=== PATIENT | female | born 1950 | race Caucasian/White ===

== ENCOUNTER 2018-05-12 22:16 | Inpatient (IN) ==
[2018-05-13] MEDS ORDERED: Ipratropium/Albuterol Neb 3 ML IH ONE (03:29)
[2018-05-13] MEDS ORDERED: Ondansetron 4 MG/2 ML VIAL ONE ×2 (03:38→05:26)
[2018-05-13] MEDS ORDERED: Levalbuterol Neb 1.25 MG/3 ML ONE (03:42)
[2018-05-13] MEDS ORDERED: Levalbuterol 1 PUFF INHALER IH SCH (04:00)
[2018-05-13] MEDS ORDERED: 0.9 % Sodium Chloride 1,000 ML ONE (04:21)
[2018-05-13] MEDS ORDERED: 0.9 % Sodium Chloride 1,000 ML IVC ONE (04:28)
[2018-05-13] MEDS ORDERED: cefTRIAXone 2,000 MG in Water for inj. (sterile) 20 ML 20 ML IVP SCH (04:31)
[2018-05-13] MEDS ORDERED: OXYCODONE Oral CONC 10 MG/0.5 ML ORAL.SYG SL PRN ×4 (04:44→08:05)
[2018-05-13] MEDS ORDERED: Naloxone 0.4 MG/ML INJ IVP PRN ×3 (04:44→08:27)
--- NOTE | 2018-05-13 04:54 | Internal Med History&Physical ---
Addendum entered and electronically signed by Hesham Goddard 05/13/18 06:09: Patient was noted to have ST depressions on ECG. initial troponin was negative Original Note: <Hesham Goddard - Last Filed: 05/13/18 05:58> Date of Encounter: 05/13/18 Time of Encounter: 04:54 Internal Medicine - H&P: HPI Chief complaint: Kidney stone Admitted From: Hospital to Hospital Transfer History of present illness: Ms. Blood is a 67 year old female with a past medical history of hypertension, asthma, diabetes, thyroid disease transferred from [facility] due to kidney stone. Per patient into per chart review patient is having some nausea and vomiting on Sunday was noted to have a kidney stone on the left on imaging. Patient says she did not improve she went to [place] late Sunday night with nausea, vomiting, abdominal pain and flank pain. She was unable to keep any foods or liquids down. Patient was noted to have an obstructing stone on the left. Patient transferred to [place] Dr. akhtar, urology was notified. Patient was on fluoroscopy noted speak with her she was shaking significantly in stating she was very cold. She began to get short of breath and was wheezing. Serious so short of breath she was not able to speak to me. She is also dry heaving intermittently. Her pulse was 168 respirations were high. Patient began to get confused. She did not know birthday, or month or year. She was oriented to herself only for a brief amount of time. Patient was not on oxygen pulse ox initially measured 87% on room air. Oxygen was placed, levalbuterol as ordered. Patient was also any chest pain. ECG troponins were ordered Stat chest x-ray ordered. Patient was not hypotensive but she was noted be septic. Liters of fluid was given 2 g Rocephin and Zosyn started. Patient began to improve in the next [address] Akhtar was called and was coming in for urgent surgery. Past Med Surg Social Fam HX - Past Medical History Medical history: asthma, diabetes, hypertension, kidney stones, thyroid disease, other Additional medical history: anemia Psychiatric history: no psych history - Past Surgical History Surgical History: - Social History Smoking Status: Never smoker Alcohol use: rarely Drug use: none - Family History Sister Hx Family Endocrine Disorder: Yes (diabetes) Mother Hx Family Cardiac Disorders: Yes Father Hx Family Cardiac Disorders: Yes Internal Medicine - H&P: Meds Celecoxib [Celebrex] 200 mg PO DAILY 05/13/18 [History] Levothyroxine [Synthroid] 88 mcg PO DAILY 05/13/18 [History] Lisinopril [Zestril] 10 mg PO DAILY 05/13/18 [History] Rosuvastatin Calcium [Crestor] 10 mg PO HS 05/13/18 [History] metFORMIN [Glucophage] 500 mg PO BIDWM 05/13/18 [History] Allergy/AdvReac Type Severity Reaction Status Date / Time tea Allergy Wheezing Uncoded 05/13/18 02:56 ROS unobtainable: due to mental status All Systems PM: A 10-system review of systems was performed and is negative for pertinent findings except as documented above in the HPI. - Constitutional Vitals: Temp Pulse Resp BP Pulse Ox 98.6 F 123 20 124/72 91 05/13/18 04:10 05/13/18 04:10 05/13/18 04:10 05/13/18 04:10 05/13/18 04:10 General appearance: Present: A&O X 1, severe distress. Absent: answers questions appropriately Exam: Patient was shaking, dry heaving, and wheezing present during. She is unable to hold conversation with me during the beginning of my exam. After appropriate treatments she was more responsive became and no 2. She was still unable to take just correct month - Head Head exam: Present: atraumatic, normocephalic - Eye Eye exam: Present: PERRL, conjuntiva pink, sclera anicteric Pupils: Present: PERRL - Respiratory Respiratory exam: Present: CTAB, respiratory distress, wheezes. Absent: chest wall tenderness, rhonchi, stridor - Cardiovascular Cardiovascular exam: Present: +S1, +S2, tachycardia. Absent: diastolic murmur, gallop, rubs, systolic murmur - GI/Abdominal GI/Abdominal exam: Present: normal bowel sounds, soft, tenderness, no peritoneal signs. Absent: distended, firm, guarding, rigid - Extremities Exam Extremities exam: Present: warm, radial pulses palpable and symmetrical. Absent: calf tenderness, cyanotic, pedal edema - Neurological Exam Neurological exam: Present: alert, CN II-XII intact, reflexes normal, no focal deficits, strengths equal and symetr throughout. Absent: pronater drift, facial droop, speech deficit - Skin Skin exam: Present: dry, intact Internal Med - H&P Results - Labs Labs: Cardiac Enzymes 05/13/18 Range/Units 03:54 Troponin I < 0.03 (< 0.04) ng/mL - Impressions ITS Impressions Chest X-Ray 05/13/18 03:53 IMPRESSION: Mild right basilar opacities, which could represent atelectasis or a small infiltrate. D/ / Inderjit Buck MD / Inderjit Buck MD Interpreting Provider: Inderjit Buck MD - Assessment and Plan (1) Urolithiasis Current Visit: Yes Status: Acute Assessment and plan: Stone noted on outside facility imaging Left sided obstructive sound with hydro-nephrosis Urinalysis positive for UTI Patient met septic criteria initial temp was 102.5, pulse is 119 Initial lactic acid at [place] was 3.68 after 2 L decreased to 2.5. Repeat at [place] lactic acid 6.8 Patient currently on third liter bolus cefepime was given at [place] at around 2030 Rocephin 2 g and Zosyn started Dr. Akhtar , urology wass made aware and came in for urgent surgery Plan: Trend lactic acids Continue antibiotics IV hydration Blood cultures were drawn at [place], follow Cardiac monitoring Zofran when necessary Nothing by mouth Sublingual oxycodone for pain levalbuterol for SOB/wheezing ICU placement after surgery Qualifiers: Urinary calculus location: ureter Qualified Code(s): N20.1 - Calculus of ureter (2) Sepsis Current Visit: Yes Status: Acute Assessment and plan: Likely urosepsis Concern for possible pneumonia, aspiration pneumonia possible with patient's recent vomiting Plan as #1 above Qualifiers: Sepsis type: sepsis due to unspecified organism Qualified Code(s): A41.9 - Sepsis, unspecified organism (3) Urinary tract infection Current Visit: Yes Status: Acute Qualifiers: Urinary tract infection type: acute cystitis Hematuria presence: without hematuria Qualified Code(s): N30.00 - Acute cystitis without hematuria (4) Pneumonia Current Visit: Yes Status: Acute Assessment and plan: Concern for possible aspiration pneumonia with recent vomiting Plan as #1 above Qualifiers: Pneumonia type: due to unspecified organism Laterality: right Lung location: lower lobe of lung Qualified Code(s): J18.1 - Lobar pneumonia, unspecified organism (5) Nausea & vomiting Current Visit: Yes Status: Acute Assessment and plan: Zofran when necessary Qualifiers: Vomiting type: unspecified Vomiting Intractability: non-intractable Qualified Code(s): R11.2 - Nausea with vomiting, unspecified (6) Confusion Current Visit: Yes Status: Acute Assessment and plan: Likely do to sepsis Resolving at this time but if patient declines or develops any new symptoms consider CT of head and brain (7) DVT prophylaxis Current Visit: Yes Status: Acute Assessment and plan: EPCDs - Time Spent With Patient Total time spent is greater than 50% in coordination of care (as documented) at patient's floor/unit and/or counseling patient: <Napoleon Baez - Last Filed: 05/13/18 20:08> Date of Encounter: 05/13/18 Internal Medicine - H&P: HPI History of present illness: Ms. Blood is a 67 year old female All Systems PM: A 10-system review of systems was performed and is negative for pertinent findings except as documented above in the HPI. - Constitutional Vitals: Temp Pulse Resp BP Pulse Ox 99.4 F 78 20 120/74 97 05/13/18 12:28 05/13/18 19:33 05/13/18 19:00 05/13/18 19:00 05/13/18 19:00 Internal Med - H&P Results - Labs CBC & Chem 7: 05/13/18 09:28 05/13/18 09:28 Labs: Short CBC 05/13/18 Range/Units 09:28 WBC 15.6 H (4.3-11.1) K/mcL Hgb 12.0 (11.5-15.4) g/dL Hct 36.0 (35.3-44.9) % Plt Count 130 L (140-400) K/mcL Neutrophils # 14.5 H (1.6-8.9) K/mcL BMP 05/13/18 09:28 Sodium 137 Potassium 4.4 Chloride 108 H Carbon Dioxide 18 L BUN 27 H Creatinine 1.62 H Glucose 113 H Calcium 9.5 Cardiac Enzymes 05/13/18 Range/Units 03:54 Troponin I < 0.03 (< 0.04) ng/mL Liver Function 05/13/18 Range/Units 09:28 Total Bilirubin 1.0 (0.3-1.0) mg/dL Direct Bilirubin 0.7 H (0.0-0.2) mg/dL AST 25 (13-39) Units/L ALT 18 (7-52) Units/L Alkaline Phosphatase 63 (34-104) Units/L Albumin 3.3 L (3.5-5.7) g/dL - Impressions ITS Impressions Fluoroscopy 05/13/18 00:00 IMPRESSION: 1. Fluoroscopy provided intraprocedurally for left ureteral stent placement. D/ : / 05/13/2018 07:43:32 Randall Gallegos MD / rosana Interpreting Provider: Randall Gallegos MD X-Ray 05/13/18 00:00 IMPRESSION: 1. Fluoroscopy provided intraprocedurally for left ureteral stent placement. D/ : / 05/13/2018 07:43:32 Randall Gallegos MD / rosana Interpreting Provider: Randall Gallegos MD Chest X-Ray 05/13/18 03:53 IMPRESSION: Mild right basilar opacities, which could represent atelectasis or a small infiltrate. D/ / Inderjit Buck MD / Inderjit Buck MD Interpreting Provider: Inderjit Buck MD - Time Spent With Patient Total time spent is greater than 50% in coordination of care (as documented) at patient's floor/unit and/or counseling patient: - Attending Attestation I was present with resident during the history and exam. I discussed the case with the resident and agree with the findings and plan as documented in the residents note. I performed my own physical examination. Patient seen and examined in the morning of 05/13/18. Patient came to us from [facility] for kidney stone. Patient was stable while at [facility], and remained stable during nurse intake. She had an acute change that included confusion, tachycardia and hypertension. I was called by the resident and saw her right away. I performed a neuro exam as I was concerned for possible stroke, but patient had no deficits. Confusion could all be related to her sepsis secondary to kidney stone/uti and possible pneumonia. Her confusion also started to improve as well. We got stat labs and a chest x-ray that showed possible lower lobe infiltrate. We broadened her antibiotics to include zosyn, and will continue ceftriaxone and zosyn for the time being. Dr. Mahajan also evaluated the patient and agreed that symptoms were likely related to sepsis. Dr. Akhtar was then called as these new findings increased the urgency of her pending procedure later today. He agreed to come in and see the patient. She was then taken to the OR earlier this morning and transferred to ICU for closer monitoring.
[2018-05-13] MEDS ORDERED: 0.9 % Sodium Chloride 1,000 ML IVC SCH ×2 (05:00→08:05)
--- NOTE | 2018-05-13 05:16 | Anesthesia Evaluation PreOp ---
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 Other Medical History: Diabetes Type II, Other Anesthesia History: No Prior Anesthetic Complications, Past Anesthesia Alcohol Use: rarely Drug use: none Medications and Allergies Celecoxib [Celebrex] 200 mg PO DAILY 05/13/18 [History] Levothyroxine [Synthroid] 88 mcg PO DAILY 05/13/18 [History] Lisinopril [Zestril] 10 mg PO DAILY 05/13/18 [History] Rosuvastatin Calcium [Crestor] 10 mg PO HS 05/13/18 [History] metFORMIN [Glucophage] 500 mg PO BIDWM 05/13/18 [History] Allergy/AdvReac Type Severity Reaction Status Date / Time tea Allergy Wheezing Uncoded 05/13/18 02:56 - Meds/Allergy Pre-op Review Medications Reviewed: Yes Allergies Reviewed: Yes Anesthesia Exam O2 Sat Height 1.52 m Weight 77.5 kg O2 Sat by Pulse Oximetry 91 O2 Sat by Pulse Oximetry 96 Vital Signs/O2 Sat/Glucose, Most Recent Temp Pulse Resp BP Pulse Ox 98.6 F 123 20 124/72 91 05/13/18 04:10 05/13/18 04:10 05/13/18 04:10 05/13/18 04:10 05/13/18 04:10 NPO (# of Hours): 8 - HEENT Mallampati: II Teeth: Normal Oral Opening: Greater than 3 - Cardiac Rhythm: Regular (TACHYCARDIC) - Pulmonary Breath Sounds: bilateral Clear Respiratory Effort: Symmetrical - Additional Findings LABS AND RADIOLOGY REPORTS FROM [facility] REVIEWED. NON OBSTRUCTING PROXIMAL URETERIC STONE, UNCHANGED FROM 2 DAYS AGO. LACTIC ACID ELEVATED, BUT ALL OTHER LABS WITHIN NORMAL, INCLUDING WBC. Anesthesia Assess/Plan ASA Score: 3, E Anesthetic Plan: General Monitoring Plan: Standard Monitors Recovery Plan: PACU
[2018-05-13] MEDS ORDERED: *HR* FentaNYL (PF) 100 MCG/2 ML VIAL ONE (05:25)
[2018-05-13] MEDS ORDERED: *HR* Propofol 200 MG/20 ML VIAL IVP ONE (05:25)
[2018-05-13] MEDS ORDERED: Lidocaine -MPF 4% 5 ML AMPUL ONE (05:26)
[2018-05-13] MEDS ORDERED: Lidocaine -MPF 2% 2 ML VIAL ONE (05:26)
[2018-05-13] MEDS ORDERED: Dexamethasone 4 MG/ML VIAL ONE (05:26)
[2018-05-13] MEDS ORDERED: *HR* Rocuronium Bromide 50 MG/5 ML VIAL ONE (05:26)
[2018-05-13] MEDS ORDERED: *HR* Succinylcholine 200 MG/10 ML VIAL IVP ONE (05:26)
[2018-05-13] MEDS ORDERED: *HR* PHENYLEPHRINE 1,000 MCG/10 ML SYRINGE IVP ONE (05:27)
[2018-05-13] MEDS ORDERED: Isovue-300 50 ML VIAL ONE (05:34)
[2018-05-13] MEDS ORDERED: Hydrocortisone Sodium Succ 100 MG/2 ML VIAL ONE (05:36)
[2018-05-13] MEDS ORDERED: Acetaminophen IV 1,000 MG/100 ML INFUS..BTL ONE (05:37)
--- NOTE | 2018-05-13 05:46 | Urology - Consult Note ---
Date of Encounter: 05/13/18 Time of Encounter: 05:44 - Assessment and Plan (1) Urolithiasis Current Visit: Yes Status: Acute Assessment and plan: Assessment: 67-year-old woman with an obstructing left ureteral stone and pyelonephritis. Plan: We have discussed options. I recommended proceeding with a cystoscopy and left ureteral stent placement. She was informed of the risks of the procedure including but not limited to bleeding, infection, injury to other structures, need for further procedures, stent irritation, need for nephrostomy tube, need for open repair, risks unforeseen, and the risk of anesthesia. She is willing to proceed. She understands that stone treatment will be deferred to a later date once her infection has cleared. She has been given broad-spectrum antibiotics with ceftriaxone and is scheduled to get Zosyn this morning. She understands that she could require a ICU stay. Qualifiers: Urinary calculus location: ureter Qualified Code(s): N20.1 - Calculus of ureter (2) Sepsis Current Visit: Yes Status: Acute Qualifiers: Sepsis type: sepsis due to unspecified organism Qualified Code(s): A41.9 - Sepsis, unspecified organism (3) Urinary tract infection Current Visit: Yes Status: Acute Qualifiers: Urinary tract infection type: acute cystitis Hematuria presence: without hematuria Qualified Code(s): N30.00 - Acute cystitis without hematuria Urology CN:HPI Consult date: 05/13/18 Reason for consult Urology: Other (left ureteral stone, hydronephrosis) Requesting physician: Napoleon Baez History of present illness: 67-year-old woman presents with concern for left flank pain. She came to an outside hospital about 2-3 days ago with left flank pain radiating to her left groin. The pain was sharp and severe. The pain came on acutely. At [facility] she had a CT scan which showed a stone within her proximal left ureter. She was discharged home with pain medication. Yesterday afternoon, she return to the emergency department. She reported worsening nausea and she felt febrile. She was noted to have a temperature and was transferred to [facility]. At the hospital she has been given IV fluids for resuscitation. She does have an elevated lactate level. Past Med Surg Social Fam HX - Past Medical History Medical history: asthma, diabetes, hypertension, kidney stones, thyroid disease, other Additional medical history: anemia Psychiatric history: no psych history - Past Surgical History Surgical History: - Social History Smoking Status: Never smoker Alcohol use: rarely Drug use: none - Family History Sister Hx Family Endocrine Disorder: Yes (diabetes) Mother Hx Family Cardiac Disorders: Yes Father Hx Family Cardiac Disorders: Yes Medications and Allergies Celecoxib [Celebrex] 200 mg PO DAILY 05/13/18 [History] Levothyroxine [Synthroid] 88 mcg PO DAILY 05/13/18 [History] Lisinopril [Zestril] 10 mg PO DAILY 05/13/18 [History] Rosuvastatin Calcium [Crestor] 10 mg PO HS 05/13/18 [History] metFORMIN [Glucophage] 500 mg PO BIDWM 05/13/18 [History] Allergy/AdvReac Type Severity Reaction Status Date / Time tea Allergy Wheezing Uncoded 05/13/18 02:56 Review of Systems - Constitutional chills, fever(s) - EENT Nose, mouth and throat: no dizziness - Cardiovascular no chest pain - Respiratory no dyspnea - Gastrointestinal nausea - Genitourinary Genitourinary: flank pain, no hematuria - Musculoskeletal no back pain - Integumentary no erythema, no rash - Neurological no weakness - Psychiatric no suicidal ideation - Hematologic/Lymphatic no easy bleeding - Allergic/Immunologic no wheezing Exam Initial Vital Signs Temp Pulse Resp BP Pulse Ox 98.0 F 91 15 101/65 96 05/13/18 02:38 05/13/18 02:38 05/13/18 02:38 05/13/18 02:38 05/13/18 02:38 - General physical appearance Present: well developed, well nourished, no distress - Eyes Absent: icteric - ENT Present: normal nares - Neck Present: trachea midline - Respiratory Present: normal respiratory effort - Cardiovascular Cardiovascular exam IM: RRR - Abdomen Abdomen: Present: soft, tender (Left flank) - Integumentary Present: no rash - Neurologic Present: normal coordination - Musculoskeletal Present: other (Grossly normal) Urology Results - Labs Abnormal lab results Lactic Acid 6.8 mmol/L (0.5-2.2) H* 05/13/18 04:46 All other labs normal. - Imaging CT scan - abdomen: report reviewed, image reviewed CT scan - pelvis: report reviewed, image reviewed Consult Discharge Plan - Plan Referrals: Napoleon Baez MD [Primary Care Provider] -
[2018-05-13] MEDS ORDERED: Ondansetron 4 MG/2 ML VIAL IVP ONE (05:49)
[2018-05-13] MEDS ORDERED: *HR* HYDROmorphone (PF) 1 MG/ML SYRINGE IVP PRN ×2 (05:49→08:05)
[2018-05-13] MEDS ORDERED: *HR* Promethazine 25 MG/ML VIAL IVP PRN ×2 (05:49→08:05)
[2018-05-13] MEDS ORDERED: *HR* Meperidine 25 MG/ML SYRINGE IVP PRN ×2 (05:49→08:05)
[2018-05-13] MEDS ORDERED: Ipratropium/Albuterol Neb 3 ML IH PRN ×2 (05:49→08:05)
[2018-05-13] MEDS ORDERED: Ondansetron 4 MG/2 ML VIAL IVP SCH ×2 (06:00→12:00)
[2018-05-13] MEDS ORDERED: Piperacillin/Tazobactam 3.375 GM in 0.9 % Sodium Chloride Mini Bag 100 ML IVPB SCH ×2 (06:00→08:00)
--- NOTE | 2018-05-13 06:38 | Operative Note ---
Date of procedure: 05/13/18 Pre-op diagnosis: Left ureteral stone, UTI with sepsis Post-op diagnosis: same Procedure: Cystoscopy and left ureteral stent placement Implants: 6-[place] Citizen by 24 cm double-J stent Complications: None Anesthesia: DIANAA Surgeon: Rony Akhtar Was there an materials assistant present: No Estimated blood loss (cc): 0 Specimen: urine from left kidney for culture Condition: stable Disposition: PACU Procedure in Detail: Indications: Tarik is a 67-year-old woman who has a history of nephrolithiasis. She had a CT which showed a left proximal ureteral stone. She has been febrile and has not elevated lactate. She elected to undergo a cystoscopy and left ureteral stent placement. She was aware of the risks of the procedure including but not limited to bleeding, infection, injury to other structures, need for further procedures, stent irritation, need for nephrostomy tube, need for open repair, risks otherwise unforeseen, and the risk of anesthesia. She is willing to proceed. Procedure in Detail: After informed consent was obtained the patient was brought back to the operating room and placed in supine position. A time out was performed. General anesthesia was administered and an endotracheal tube was placed. She was then placed in the lithotomy position. She was prepped and draped in the usual sterile fashion. Cystoscopy was performed. The anterior urethra was normal. There was no evidence of bladder tumors. The ureteral orifices were in the normal orthotopic position. There was no duplication of the ureteral orifices. The Zip wire was placed in the left ureteral orifice. The wire was brought into the kidney under fluoroscopic guidance. The open-ended catheter was placed over the wire into the kidney. The wire was removed and urine was obtained from the kidney for culture. The wire was then brought up into the kidney under fluoroscopic guidance. The open ended catheter was removed. A 6 [place] Citizen by 24cm JJ stent was then placed. The dangle strings were removed. A Boyd catheter was placed. The patient was then awakened from general anesthesia and brought to recovery room in good condition. All sponge, needle, and instrument counts were correct.
[2018-05-13] MEDS ORDERED: Ringers Solution, Lactated 1,000 ML ONE (07:24)
[2018-05-13] MEDS ORDERED: Ringers Solution, Lactated 1,000 ML IVC ONE ×2 (07:30→08:05)
[2018-05-13] MEDS ORDERED: Dextrose 4 GM Chewable Tablets PO PRN ×2 (08:05)
[2018-05-13] MEDS ORDERED: *HR* Dextrose 50 % in Water (Syg) 50 ML SYRINGE IVP PRN (08:05)
[2018-05-13] MEDS ORDERED: Dextrose Gel 15 GM/37.5 ML TUBE PO PRN ×2 (08:05)
[2018-05-13] MEDS ORDERED: D5% in Water 1,000 ML IVC PRN (08:05)
--- NOTE | 2018-05-13 08:29 | Anesthesia Evaluation Post Op ---
Date of Encounter: 05/13/18 Time of Encounter: 08:00 - Vital Signs Vital Signs: Vital Signs/O2 Sat, Most Current Temp Pulse Resp BP Pulse Ox 100.8 F H 91 16 87/55 95 05/13/18 08:17 05/13/18 08:18 05/13/18 07:52 05/13/18 07:52 05/13/18 07:52 - Lungs Lungs: Clear Ascult./Percussion - Airway Airway: Non-obstructed - Cardiovascular Regular Rate - Mental Status Mental Status: Alert & Oriented, Answers Appropriately - Pain Pain Scale: 0 Pain Scale used: Numeric (1 - 10) - Nausea Vomiting Nausea Vomiting: Not Present - Hydration Hydration: NPO, Boyd catheter - Discharge PostOp Status: Transfer Patient to floor
[2018-05-13] MEDS: Insulin LISPRO 300 UNITS/3 ML VIAL SQ SCH ×3 (08:34→16:05)
--- NOTE | 2018-05-13 08:36 | Pulmonology Consult Note ---
<Jack Palumbo M - Last Filed: 05/13/18 13:38> Date of Encounter: 05/13/18 Medications and Allergies Celecoxib [Celebrex] 200 mg PO DAILY 05/13/18 [History] Levothyroxine [Synthroid] 88 mcg PO DAILY 05/13/18 [History] Lisinopril [Zestril] 10 mg PO DAILY 05/13/18 [History] Rosuvastatin Calcium [Crestor] 10 mg PO HS 05/13/18 [History] metFORMIN [Glucophage] 500 mg PO BIDWM 05/13/18 [History] Allergy/AdvReac Type Severity Reaction Status Date / Time tea Allergy Wheezing Uncoded 05/13/18 02:56 All Systems: The remainder of the systems were reviewed and are negative Physical Examination Vital Signs: Vital Signs, Last 4 Hours Temp Pulse Resp BP Pulse Ox 05/13/18 10:00 94 18 89/58 96 05/13/18 09:23 15 96 05/13/18 09:00 91 18 99/55 93 05/13/18 08:28 100.1 F H 05/13/18 08:18 91 05/13/18 08:17 100.8 F H 05/13/18 08:00 98 05/13/18 07:52 99.9 F H 92 16 87/55 95 05/13/18 07:42 92 20 85/55 95 05/13/18 07:32 90 18 86/53 97 05/13/18 07:22 99.1 F 91 18 86/54 96 05/13/18 07:17 92 20 89/51 95 05/13/18 07:12 95 18 84/49 96 05/13/18 07:02 101 20 91/48 94 05/13/18 06:52 99.2 F 103 22 89/51 93 Results - Laboratory Findings CBC and BMP: 05/13/18 09:28 05/13/18 09:28 Abnormal lab findings: Abnormal lab results WBC 15.6 K/mcL (4.3-11.1) H 05/13/18 09:28 Plt Count 130 K/mcL (140-400) L 05/13/18 09:28 Neutrophils # 14.5 K/mcL (1.6-8.9) H 05/13/18 09:28 Lymphocytes # 0.5 K/mcL (0.6-4.6) L 05/13/18 09:28 Platelet Estimate Slight Decrease (Normal) L 05/13/18 09:28 Chloride 108 mEq/L (98-107) H 05/13/18 09:28 Carbon Dioxide 18 mEq/L (23-29) L 05/13/18 09:28 BUN 27 mg/dL (8-23) H 05/13/18 09:28 Creatinine 1.62 mg/dL (0.60-1.20) H 05/13/18 09:28 Est GFR ( Amer) 38 (> 60) L 05/13/18 09:28 Est GFR (Non-Af Amer) 32 (> 60) L 05/13/18 09:28 Glucose 113 mg/dL (70-105) H 05/13/18 09:28 POC Glucose 104 mg/dL (70-99) H 05/13/18 08:06 Lactic Acid 3.3 mmol/L (0.5-2.2) H 05/13/18 09:28 Magnesium 0.9 mg/dL (1.6-2.6) L 05/13/18 09:28 Direct Bilirubin 0.7 mg/dL (0.0-0.2) H 05/13/18 09:28 Serum Total Protein 5.6 g/dL (6.4-8.9) L 05/13/18 09:28 Albumin 3.3 g/dL (3.5-5.7) L 05/13/18 09:28 Globulin 2.3 g/dL (2.4-3.5) L 05/13/18 09:28 - Microbiology Findings Microbiology Findings: Microbiology, Last 48 Hours 05/13/18 09:28 Blood Culture - Preliminary Peripheral Venipuncture Culture is incubating and being continuously mon itored for growth. Final report to follow. 05/13/18 09:28 Blood Culture - Preliminary Peripheral Venipuncture Culture is incubating and being continuously monitored for growth. Final report to follow. - Clinical Findings Intake & Output: Intake & Output 05/12/18 05/13/18 05/13/18 23:59 07:59 15:59 Intake Total 1020 / 1020 2099 / 2099 Output Total 225 / 225 Balance 795 / 795 2099 Weight 77.5 kg Consult Discharge Plan - Plan Referrals: Napoleon Baez MD [Primary Care Provider] - - Attending Attestation I examined this patient and my medical decision-making was reviewed with the Resident Physician. I agree with the documented findings, disposition and treatment plan as described except to the extent set forth below. Patient seen and examined. I was called by urologist after she had her surgery because of her hypotension and lactic acidosis Labs, radiology, chart personally reviewed. 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 Patient stated she is not using oxygen at home and I suspect this is related to underlying sepsis Cardiovascular: Borderline hypotensive and I will give her another bolus of flui d and reviewed her chest x-ray and evidence of pulmonary congestion which will need to be careful for more fluid resuscitation. GI: Nutrition per dietary and GI prophylaxis per routine Heme: DVT prophylaxis per routine ID: Continue antibiotics and plan to de-escalation. Pt with sepsis and continue broad spectrum Renal; urine out put and renal funtion reviewed. Patient with lactic acidosis and pt was given bolus fluid and may need vasopressors Endorcine: blood glucose is monitored Lines: all lines checked and no evidence of infections Skin: skin care to prevent pressure ulcers per nursing routine care I have discussed with the family at the bedside. I spent 35 min of Critical Care time with this patient. It involved decision making of high complexity to assess, manipulate, and support vital organ system failure and/or to prevent further life threatening deterioration of the patient's condition. The time involved in the performance of separately reportable procedures was not counted toward critical care time. <Hola Crum - Last Filed: 05/13/18 14:45> Date of Encounter: 05/13/18 Time of Encounter: 08:36 Assessment and Plan (1) Sepsis Current Visit: Yes Status: Acute This is a 67-year-old female with past medical history significant for hypertension, asthma, diabetes, thyroid disease who initially presented last evening with left-sided kidney stone. - Imaging initially showed a obstructing kidney stone on the left - Septic presentation - febrile, tachycardic, tachypnic, leukocytosis, hypotensive - Lactic Acid = 6.8 - UA suggestive of UTI - S/p IVF and Rocephin, Zosyn - CXR (2/25/19): Mild right basilar opacities, which could represent atelectasis or a small infiltrate. - S/p urgent cystoscopy with left ureteral stent placement PLAN: Patient presents with likely urosepsis. Febrile, tachycardic, tachypneic, hyp otensive with leukocytosis on presentation. Status post fluids and prophylactic antibiotics. Status post cystoscopy with left ureteral stent placement. Clinically improving in the ICU - Monitor vitals, monitor pressures; titrate to keep map greater than 65. - Continue IV fluids; however beware of fluid overload - Continue O2 supplementation; titrate to keep O2 sat greater than 88%; wean oxygen as tolerated - Continue broad-spectrum antibiotics - Follow up blood cultures, urine cultures - Repeat lactic acid - Monitor for fevers or worsening leukocytosis - Monitor urine output, and kidney function - Pain control as needed Qualifiers: Sepsis type: sepsis due to unspecified organism Qualified Code(s): A41.9 - Sepsis, unspecified organism (2) Urolithiasis Current Visit: Yes Status: Acute Imaging initially showed a obstructing kidney stone on the left. - S/p cystoscopy and left ureteral stent placement PLAN: - Urolology recommendations appreciated - Plan as above for sepsis Qualifiers: Urinary calculus location: ureter Qualified Code(s): N20.1 - Calculus of ureter (3) Urinary tract infection Current Visit: Yes Status: Acute UA at outside facility demonstrative of UTI - WBC = 15.6 - Septic presentation PLAN: - Cont IVF - Cont antibiotics - F/u urine culture --> adjust antibiotics as necessary Qualifiers: Urinary tract infection type: acute cystitis Hematuria presence: without hematuria Qualified Code(s): N30.00 - Acute cystitis without hematuria (4) DVT prophylaxis Current Visit: Yes Status: Acute Cont SCDs (5) Acute kidney injury Current Visit: Yes Status: Acute BUN/Cr = 27/1.62 PLAN: Likely secondary to sepsis. - Continue IV fluids - Monitor urine output and BUN/Cr History of Present Illness Consult date: 05/13/18 Requesting physician: Rony Akhtar Reason for consult: other (Hypotension, Lactic Acidosis) Chief complaint: Hypotension, Lactic Acidosis History of present illness: This is a 67-year-old female with past medical history significant for hypertension, asthma, diabetes, thyroid disease who initially presented last evening with left-sided kidney stone. Noted to have 2-3 days of left flank pain spreading to the left groin. Pain was sharp and severe. Associated with nausea, vomiting, abdominal pain. Unable to eat or drink. Imaging initially showed a obstructing kidney stone on the left. On presentation, patient noted to be febrile, tachycardic, tachypnea with leukocytosis. Urinalysis suggestive of UTI. Initial Lactic Acid = 3.68, which decreased after fluids to 2.5, but again raised to 6.8 on prsentation to ARM. Patient was given IV fluids and started on Rocephin and Zosyn. Dr. Akhtar from urology was paged, and planned to come in for urgent surgery. Given obstructing left ureteral stone and pyelonephritis, urology proceeded with cystoscopy and left ureteral stent placement. Patient was brought to ICU post- operatively. Lactic acid = 6.8. Noted to be hypertensive = 80s/50s. Given liter bolus of lactated Ringer's, and started on Zosyn. Pressures responded to fluids. Patient currently stable resting comfortably. Vitals hemodynamically stable. O2 sats appropriate on room air. Past Med Surg Social Fam HX - Past Medical History Attestation: Yes The following information was validated with the patient. Source: patient, old records reviewed Medical history: asthma, diabetes, hypertension, kidney stones, thyroid disease, other Additional medical history: anemia Psychiatric history: no psych history - Past Surgical History Surgical History: - Social History Smoking Status: Never smoker Alcohol use: rarely Drug use: none - Family History Sister Hx Family Endocrine Disorder: Yes (diabetes) Mother Hx Family Cardiac Disorders: Yes Father Hx Family Cardiac Disorders: Yes All Systems: The remainder of the systems were reviewed and are negative - Constitutional Constitutional: fatigue, no chills, no fever(s), no headache(s), no lethargy, no weakness - EENT Eyes: no loss of vision Ears: no decreased hearing Nose, mouth and throat: no dizziness, no dry mouth, no headache(s), no nasal discharge, no sore throat - Cardiovascular Cardiovascular: no chest pain, no dyspnea, no dyspnea on exertion, no edema, no irregular heart rhythm, no lightheadedness - Respiratory Respiratory: no cough, no dyspnea, no wheezing - Gastrointestinal Gastrointestinal: nausea, no abdominal pain, no diarrhea, no vomiting - Genitourinary Genitourinary: hematuria - Musculoskeletal Musculoskeletal: no weakness, no myalgias - Integumentary Integumentary: no rash - Neurological Neurological: no confusion, no dizziness, no headache(s) Physical Examination Vital Signs: Vital Signs, Last 4 Hours Temp Pulse Resp BP Pulse Ox 05/13/18 08:18 91 05/13/18 08:17 100.8 F H 05/13/18 08:00 98 05/13/18 07:52 99.9 F H 92 16 87/55 95 05/13/18 07:42 92 20 85/55 95 05/13/18 07:32 90 18 86/53 97 05/13/18 07:22 99.1 F 91 18 86/54 96 05/13/18 07:17 92 20 89/51 95 05/13/18 07:12 95 18 84/49 96 05/13/18 07:02 101 20 91/48 94 05/13/18 06:52 99.2 F 103 22 89/51 93 General appearance: no acute distress, alert Eyes: nonicteric ENT: oropharynx moist Neck: supple Effort: normal Auscultation: bilateral: clear (No wheezes, rales, rhonchi, crackles) Cardiovascular: regular rate and rhythm Gastrointestinal: normoactive bowel sounds, soft, non-tender, non-distended Integumentary: normal Extremities: no cyanosis, no edema normal mental status, non-focal exam, pupils equal and round, CN II-XII normal mood appropriate, affect normal Results - Laboratory Findings CBC and BMP: 05/13/18 09:28 05/13/18 09:28 Abnormal lab findings: Abnormal lab results POC Glucose 104 mg/dL (70-99) H 05/13/18 08:06 Lactic Acid 6.8 mmol/L (0.5-2.2) H* 05/13/18 04:46 - Clinical Findings Intake & Output: Intake & Output 05/12/18 05/13/18 05/13/18 23:59 07:59 15:59 Intake Total 1020 / 1020 0 / 0 Output Total 225 / 225 Balance 795 / 795 0 / 0 Weight 77.5 kg
[2018-05-13] MEDS: Levalbuterol Neb 0.63 MG/3 ML IH SCH ×3 (09:21→21:47)
[2018-05-13] MEDS: Ringers Solution, Lactated 1,000 ML IVC SCH ×3 (09:37→22:01)
[2018-05-13 09:48] LABS: Basophils % 0.1 %; Eosinophils % 0.1 %; Immature Granulocytes % 1.7 % (0-4); Lymphocytes # 0.5 K/mcL (0.6-4.6); Lymphocytes % 2.9 %; Mean Corpuscular HGB Conc 33.3 g/dL (31.6-35.5); Mean Corpuscular Hemoglobin 30.9 pg (28.0-33.3); Mean Corpuscular Volume 92.8 fL (83.0-100.0); Mean Platelet Volume 10.6 fL (9.4-12.4); Monocytes # 0.4 K/mcL (0.0-1.3); Monocytes % 2.6 %; Neutrophils # 14.5 K/mcL (1.6-8.9); Platelet Count 130 K/mcL (140-400); Red Blood Count 3.88 M/mcL (3.82-4.97); Red Cell Distribution Width 12.8 % (11.5-14.5); Segmented Neutrophils % 92.6 %
[2018-05-13] MEDS ORDERED: Levalbuterol Neb 0.63 MG/3 ML IH SCH (10:00)
[2018-05-13 10:02] LABS: Albumin 3.3 g/dL (3.5-5.7); Albumin/Globulin Ratio 1.4 (1.1-2.2); Bilirubin,Direct 0.7 mg/dL (0.0-0.2); Bilirubin,Indirect 0.3 mg/dL (0.0-1.2); Calcium 9.5 mg/dL (8.6-10.3); Globulin 2.3 g/dL (2.4-3.5); Magnesium 0.9 mg/dL (1.6-2.6); Phosphorous 3.2 mg/dL (2.7-4.5); Potassium 4.4 mEq/L (3.5-5.1); Total Protein 5.6 g/dL (6.4-8.9)
[2018-05-13 10:03] LABS: Platelet Estimate Slight Decrease (Normal)
--- NOTE | 2018-05-13 11:13 | Urology Progress Note ---
Date of Encounter: 05/13/18 Time of Encounter: 10:30 - Assessment and Plan (1) Urinary tract infection Current Visit: Yes Status: Acute Assessment and plan: Patient is a 67-year old female who presents with a left proximal ureteral stone and urinary tract infection. Patient is 4 hours status post cystoscopy and left ureteral stent placement. Blood and urine cultures pending. Reviewed vital signs. Patient is febrile to 100.1 and hypotensive, otherwise stable. Patient is receiving IV Zosyn. Qualifiers: Urinary tract infection type: acute cystitis Hematuria presence: without hematuria Qualified Code(s): N30.00 - Acute cystitis without hematuria (2) Urolithiasis Current Visit: Yes Status: Acute Assessment and plan: Patient is a 67-year old female who presents with left proximal ureteral stone. Patient is status post ureteral stent. Will require staged stone extraction procedure once infection is resolved. Qualifiers: Urinary calculus location: ureter Qualified Code(s): N20.1 - Calculus of ureter Progress Note Narrative: POD #0. Patient seen and examined sitting upright in bed in no apparent distress. Patient reports pain is well controlled at present. Boyd catheter is indwelling and draining transparent pink lemonade urine into bedside bag. Objective Initial Vital Signs Temp Pulse Resp BP Pulse Ox 98.0 F 91 15 101/65 96 05/13/18 02:38 05/13/18 02:38 05/13/18 02:38 05/13/18 02:38 05/13/18 02:38 - General physical appearance Present: no distress, no pain - Respiratory Present: normal expansion, normal respiratory effort - Abdomen Present: soft, non tender - Genitourinary Urine Appearance: Present: Hematuria - Integumentary Present: no rash, no abnormal pigmentation - Musculoskeletal Present: normal posture - Psychiatric Present: oriented to time, oriented to person, oriented to place, speech is normal, memory intact - Labs 05/13/18 09:28 05/13/18 09:28 Diabetes panel 05/13/18 Range/Units 09:28 Sodium 137 (136-145) mEq/L Potassium 4.4 (3.5-5.1) mEq/L Chloride 108 H (98-107) mEq/L Carbon Dioxide 18 L (23-29) mEq/L BUN 27 H (8-23) mg/dL Creatinine 1.62 H (0.60-1.20) mg/dL Glucose 113 H (70-105) mg/dL Calcium 9.5 (8.6-10.3) mg/dL AST 25 (13-39) Units/L ALT 18 (7-52) Units/L Alkaline Phosphatase 63 (34-104) Units/L Albumin 3.3 L (3.5-5.7) g/dL Calcium panel 05/13/18 Range/Units 09:28 Calcium 9.5 (8.6-10.3) mg/dL Phosphorus 3.2 (2.7-4.5) mg/dL Albumin 3.3 L (3.5-5.7) g/dL Pituitary panel 05/13/18 Range/Units 09:28 Sodium 137 (136-145) mEq/L Potassium 4.4 (3.5-5.1) mEq/L Chloride 108 H (98-107) mEq/L Carbon Dioxide 18 L (23-29) mEq/L BUN 27 H (8-23) mg/dL Creatinine 1.62 H (0.60-1.20) mg/dL Glucose 113 H (70-105) mg/dL Calcium 9.5 (8.6-10.3) mg/dL Adrenal panel 05/13/18 Range/Units 09:28 Sodium 137 (136-145) mEq/L Potassium 4.4 (3.5-5.1) mEq/L Chloride 108 H (98-107) mEq/L Carbon Dioxide 18 L (23-29) mEq/L BUN 27 H (8-23) mg/dL Creatinine 1.62 H (0.60-1.20) mg/dL Glucose 113 H (70-105) mg/dL Calcium 9.5 (8.6-10.3) mg/dL Total Bilirubin 1.0 (0.3-1.0) mg/dL AST 25 (13-39) Units/L ALT 18 (7-52) Units/L Alkaline Phosphatase 63 (34-104) Units/L Albumin 3.3 L (3.5-5.7) g/dL Consult Discharge Plan - Plan Referrals: Napoleon Baez MD [Primary Care Provider] -
[2018-05-13] MEDS ORDERED: Ondansetron 4 MG/2 ML VIAL IVP PRN (14:38)
[2018-05-13] MEDS: Piperacillin/Tazobactam 3.375 GM in 0.9 % Sodium Chloride Mini Bag 100 ML IVPB SCH ×2 (15:14→23:41)
[2018-05-14] MEDS ORDERED: OXYCODONE Oral CONC 10 MG/0.5 ML ORAL.SYG SL PRN ×2 (01:00)
[2018-05-14] MEDS ORDERED: Dextrose 4 GM Chewable Tablets PO PRN ×2 (01:00)
[2018-05-14] MEDS ORDERED: *HR* HYDROmorphone (PF) 1 MG/ML SYRINGE IVP PRN (01:00)
[2018-05-14] MEDS ORDERED: *HR* Promethazine 25 MG/ML VIAL IVP PRN (01:00)
[2018-05-14] MEDS ORDERED: Naloxone 0.4 MG/ML INJ IVP PRN (01:00)
[2018-05-14] MEDS ORDERED: D5% in Water 1,000 ML IVC PRN (01:00)
[2018-05-14] MEDS ORDERED: Ipratropium/Albuterol Neb 3 ML IH PRN (01:00)
[2018-05-14] MEDS ORDERED: Ondansetron 4 MG/2 ML VIAL IVP PRN (01:00)
[2018-05-14] MEDS ORDERED: Dextrose Gel 15 GM/37.5 ML TUBE PO PRN ×2 (01:00)
[2018-05-14] MEDS ORDERED: *HR* Dextrose 50 % in Water (Syg) 50 ML SYRINGE IVP PRN (01:00)
[2018-05-14 04:15] LABS: Basophils % 0.1 %; Hemoglobin 10.3 g/dL (11.5-15.4); Immature Granulocytes % 5.5 % (0-4); Lymphocytes # 1.3 K/mcL (0.6-4.6); Lymphocytes % 5.2 %; Mean Corpuscular HGB Conc 33.2 g/dL (31.6-35.5); Mean Corpuscular Hemoglobin 30.7 pg (28.0-33.3); Mean Corpuscular Volume 92.5 fL (83.0-100.0); Mean Platelet Volume 11.2 fL (9.4-12.4); Monocytes # 1.1 K/mcL (0.0-1.3); Monocytes % 4.5 %; Neutrophils # 21.2 K/mcL (1.6-8.9); Platelet Count 124 K/mcL (140-400); Red Blood Count 3.35 M/mcL (3.82-4.97); Red Cell Distribution Width 13.2 % (11.5-14.5); Segmented Neutrophils % 84.7 %
[2018-05-14] MEDS: Levalbuterol Neb 0.63 MG/3 ML IH SCH ×4 (04:28→22:35)
[2018-05-14 04:34] LABS: Albumin 3.2 g/dL (3.5-5.7); Albumin/Globulin Ratio 1.3 (1.1-2.2); Bilirubin,Total 0.6 mg/dL (0.3-1.0); Calcium 8.8 mg/dL (8.6-10.3); Globulin 2.4 g/dL (2.4-3.5); Magnesium 1.2 mg/dL (1.6-2.6); Phosphorous 3.8 mg/dL (2.7-4.5); Potassium 4.3 mEq/L (3.5-5.1); Total Protein 5.6 g/dL (6.4-8.9)
[2018-05-14 04:48] LABS: Platelet Estimate Slight Decrease (Normal); Toxic Granulation Present (Not Present)
[2018-05-14] MEDS: Ringers Solution, Lactated 1,000 ML IVC SCH ×4 (06:15→20:14)
--- NOTE | 2018-05-14 06:42 | Electrocardiograph Report ---
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
--- NOTE | 2018-05-14 06:47 | Pulmonology Progress Note ---
<LinwoodJack M - Last Filed: 05/14/18 10:04> Date of Encounter: 05/14/18 Objective PUL Vital signs: Last Vital Signs Temp 98.2 F 05/14/18 04:51 Pulse 80 05/14/18 07:15 Resp 18 05/14/18 07:00 BP 120/65 05/14/18 07:00 Pulse Ox 91 05/14/18 07:00 Results - Laboratory Findings CBC and BMP: 05/14/18 03:19 05/14/18 03:19 Abnormal lab findings: Abnormal lab results WBC 25.0 K/mcL (4.3-11.1) H D 05/14/18 03:19 RBC 3.35 M/mcL (3.82-4.97) L 05/14/18 03:19 Hgb 10.3 g/dL (11.5-15.4) L D 05/14/18 03:19 Hct 31.0 % (35.3-44.9) L 05/14/18 03:19 Plt Count 124 K/mcL (140-400) L 05/14/18 03:19 Immature Gran % 5.5 % (0-4) H 05/14/18 03:19 Neutrophils # 21.2 K/mcL (1.6-8.9) H 05/14/18 03:19 Toxic Granulation Present (Not Present) A 05/14/18 03:19 Platelet Estimate Slight Decrease (Normal) L 05/14/18 03:19 Chloride 112 mEq/L (98-107) H 05/14/18 03:19 Carbon Dioxide 19 mEq/L (23-29) L 05/14/18 03:19 BUN 29 mg/dL (8-23) H 05/14/18 03:19 Creatinine 1.48 mg/dL (0.60-1.20) H 05/14/18 03:19 Est GFR ( Amer) 42 (> 60) L 05/14/18 03:19 Est GFR (Non-Af Amer) 35 (> 60) L 05/14/18 03:19 Glucose 126 mg/dL (70-105) H 05/14/18 03:19 POC Glucose 128 mg/dL (70-99) H 05/13/18 16:03 Magnesium 1.2 mg/dL (1.6-2.6) L 05/14/18 03:19 Direct Bilirubin 0.7 mg/dL (0.0-0.2) H 05/13/18 09:28 Serum Total Protein 5.6 g/dL (6.4-8.9) L 05/14/18 03:19 Albumin 3.2 g/dL (3.5-5.7) L 05/14/18 03:19 - Microbiology Findings Microbiology Findings: Microbiology, Last 48 Hours 05/13/18 06:25 Urine Culture - Preliminary Urine,Kidney Culture is incubating. 05/13/18 09:28 Blood Culture - Preliminary Peripheral Venipuncture Culture is incubating and being continuously monitored for growth. Final report to follow. 05/13/18 09:28 Blood Culture - Preliminary Peripheral Venipuncture Culture is incubating and being continuously monitored for growth. Final report to follow. - Clinical Findings Intake & Output: Intake & Output 05/13/18 05/14/18 05/14/18 23:59 07:59 15:59 Intake Total 1600 / 1600 1560 / 1560 Output Total 1100 / 1100 1400 / 1400 200 / 200 Balance 500 / 500 160 / 160 -200 / -200 Weight 82.2 kg Consult Discharge Plan - Plan Referrals: Napoleon Baez MD [Primary Care Provider] - - Attending Attestation I examined this patient and my medical decision-making was reviewed with the Resident Physician. I agree with the documented findings, disposition and treatment plan as described except to the extent set forth below. Patient seen and examined. Labs, radiology, chart personally reviewed. 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 GI: Nutrition per dietary and GI prophylaxis per routine Heme: DVT prophylaxis per routine ID: Continue antibiotics and plan to de-escalation. Continue antibiotics. Renal; urine out put and renal funtion reviewed. Urology follow-up. Continue IV fluid for now and monitor electrolytes. There is improvement. Lactic acid Endorcine: blood glucose is monitored Lines: all lines checked and no evidence of infections Skin: skin care to prevent pressure ulcers per nursing routine care <Cirilo Rubin - Last Filed: 05/14/18 10:51> Date of Encounter: 05/14/18 Time of Encounter: 06:42 Assessment and Plan (1) Sepsis Current Visit: Yes Status: Acute 67-year-old female with past medical history significant for hypertension, asthma, diabetes, thyroid disease who initially presented 05/12/18 with left- sided kidney stone. Most likely urosepsis based on history of cystocopy + L uteral stent and positive urinalysis. - Imaging initially showed a obstructing kidney stone on the left - Septic presentation - febrile, tachycardic, tachypnic, leukocytosis, hypotensive - Lactic Acid = 1.4 today < 3.1 1PM yesterday - UA suggestive of UTI, pending urine cultures - pending blood cultures - S/p IVF and Rocephin, Zosyn - CXR (05/13/18): Mild right basilar opacities, which could represent atelectasis or a small infiltrate. - S/p urgent cystoscopy with left ureteral stent placement PLAN: Patient presents with likely urosepsis. Febrile, tachycardic, tachypneic, hypotensive with leukocytosis on presentation. Status post fluids and prophylactic antibiotics. Status post cystoscopy with left ureteral stent placement. Clinically improving in the ICU - Monitor vitals, monitor pressures; titrate to keep map greater than 65. - Continue IV fluids; however beware of fluid overload - Continue O2 supplementation; titrate to keep O2 sat greater than 88%; wean oxygen as tolerated - Continue broad-spectrum antibiotics - zosyn - Follow up blood cultures, urine cultures - Monitor for fevers or worsening leukocytosis - Monitor urine output, and kidney function - Pain control as needed Qualifiers: Sepsis type: sepsis due to unspecified organism Qualified Code(s): A41.9 - Sepsis, unspecified organism (2) Urinary tract infection Current Visit: Yes Status: Acute Urinalysis at outside facility indicated UTI. Urine culture pending. See Sepsis plan Qualifiers: Urinary tract infection type: acute cystitis Hematuria presence: without hematuria Qualified Code(s): N30.00 - Acute cystitis without hematuria (3) Acute kidney injury Current Visit: Yes Status: Acute Creatinine improving 1.48 < 1.68 (4) DVT prophylaxis Current Visit: Yes Status: Acute SCDs Subjective Principal diagnosis: Urosepsis, UTI, neprholithaisis s/p cystocpy and L uteral stent. Interval history: 57 YO F here for urosepsis, uti, neprholithiasis s/p cystocopy and L uteral stent. In NAD. Denies fever, chills, chest pain, SOB, abdominal pain. Patient states that Dr. Alejandro will come in and remove cath today. Objective PUL Vital signs: Last Vital Signs Temp 98.2 F 05/14/18 04:51 Pulse 78 05/14/18 04:40 Resp 20 05/14/18 04:40 BP 119/69 05/14/18 04:40 Pulse Ox 91 05/14/18 04:40 General appearance: no acute distress, alert Eyes: nonicteric ENT: oropharynx moist Neck: supple Auscultation: bilateral: clear, diminished breath sounds (due to pain with inspiration in pelvis) Cardiovascular: regular rate and rhythm Gastrointestinal: normoactive bowel sounds Extremities: no cyanosis, no edema, pink and warm normal mental status mood appropriate Results - Laboratory Findings CBC and BMP: 05/14/18 03:19 05/14/18 03:19 Abnormal lab findings: Abnormal lab results WBC 25.0 K/mcL (4.3-11.1) H D 05/14/18 03:19 RBC 3.35 M/mcL (3.82-4.97) L 05/14/18 03:19 Hgb 10.3 g/dL (11.5-15.4) L D 05/14/18 03:19 Hct 31.0 % (35.3-44.9) L 05/14/18 03:19 Plt Count 124 K/mcL (140-400) L 05/14/18 03:19 Immature Gran % 5.5 % (0-4) H 05/14/18 03:19 Neutrophils # 21.2 K/mcL (1.6-8.9) H 05/14/18 03:19 Toxic Granulation Present (Not Present) A 05/14/18 03:19 Platelet Estimate Slight Decrease (Normal) L 05/14/18 03:19 Chloride 112 mEq/L (98-107) H 05/14/18 03:19 Carbon Dioxide 19 mEq/L (23-29) L 05/14/18 03:19 BUN 29 mg/dL (8-23) H 05/14/18 03:19 Creatinine 1.48 mg/dL (0.60-1.20) H 05/14/18 03:19 Est GFR ( Amer) 42 (> 60) L 05/14/18 03:19 Est GFR (Non-Af Amer) 35 (> 60) L 05/14/18 03:19 Glucose 126 mg/dL (70-105) H 05/14/18 03:19 POC Glucose 128 mg/dL (70-99) H 05/13/18 16:03 Lactic Acid 3.1 mmol/L (0.5-2.2) H 05/13/18 13:02 Magnesium 1.2 mg/dL (1.6-2.6) L 05/14/18 03:19 Direct Bilirubin 0.7 mg/dL (0.0-0.2) H 05/13/18 09:28 Serum Total Protein 5.6 g/dL (6.4-8.9) L 05/14/18 03:19 Albumin 3.2 g/dL (3.5-5.7) L 05/14/18 03:19 - Microbiology Findings Microbiology Findings: Microbiology, Last 48 Hours 05/13/18 06:25 Urine Culture - Preliminary Urine,Kidney Culture is incubating. 05/13/18 09:28 Blood Culture - Preliminary Peripheral Venipuncture Culture is incubating and being continuously monitored for growth. Final report to follow. 05/13/18 09:28 Blood Culture - Preliminary Peripheral Venipuncture Culture is incubating and being continuously monitored for growth. Final report to follow. - Clinical Findings Intake & Output: Intake & Output 05/13/18 05/13/18 05/14/18 15:59 23:59 07:59 Intake Total 3600 / 3600 1600 / 1600 1100 / 1100 Output Total 1100 / 1100 950 / 950 Balance 3600 / 3600 500 / 500 150 / 150 Weight 82.2 kg
[2018-05-14] MEDS: Insulin LISPRO 300 UNITS/3 ML VIAL SQ SCH ×3 (07:25→17:08)
--- NOTE | 2018-05-14 09:32 | Urology Progress Note ---
Date of Encounter: 05/14/18 Time of Encounter: 09:10 - Assessment and Plan (1) Urinary tract infection Current Visit: Yes Status: Acute Assessment and plan: Patient is a 67-year-old female who presents with a left proximal ureteral stone and urinary tract infection. Vital signs are currently stable and afebrile. Patient is pending step down transfer from ICU to a regular telemetry bed. White blood cell count is elevated to 25.0. Creatinine is improved to 1.48. Blood and urine cultures are pending. Patient is receiving IV Zosyn. I will placed order to discontinue Boyd catheter. Qualifiers: Urinary tract infection type: acute cystitis Hematuria presence: without hematuria Qualified Code(s): N30.00 - Acute cystitis without hematuria (2) Urolithiasis Current Visit: Yes Status: Acute Assessment and plan: Patient is a 67-year-old female who is one day status post cystoscopy and left ureteral stent placement. Patient is recovering well. Patient is aware she will require a staged stone extraction procedure. Postoperative expectations with indwelling ureteral stent were discussed with patient and her . Qualifiers: Urinary calculus location: ureter Qualified Code(s): N20.1 - Calculus of ureter Progress Note Subjective: no new complaints, feels better Narrative: POD #1. Patient seen and examined sitting upright in chair in no apparent distress. Boyd catheter is indwelling and draining transparent pink lemonade urine into bedside bag. Patient admits to catheter discomfort and desires rem oval. Patient denies fever, chills, flank pain, chest pain, dyspnea. Objective Initial Vital Signs Temp Pulse Resp BP Pulse Ox 98.0 F 91 15 101/65 96 05/13/18 02:38 05/13/18 02:38 05/13/18 02:38 05/13/18 02:38 05/13/18 02:38 - General physical appearance Present: well developed, no distress, no pain - Respiratory Present: normal expansion, normal respiratory effort - Abdomen Present: soft, non tender - Genitourinary Urine Appearance: Present: Hematuria (Transparent pink lemonade) - Integumentary Present: no rash, no abnormal pigmentation - Musculoskeletal Present: normal posture - Psychiatric Present: oriented to time, oriented to person, oriented to place, speech is normal, memory intact - Labs 05/14/18 03:19 05/14/18 03:19 Diabetes panel 05/13/18 05/14/18 Range/Units 09:28 03:19 Sodium 137 136 (136-145) mEq/L Potassium 4.4 4.3 (3.5-5.1) mEq/L Chloride 108 H 112 H (98-107) mEq/L Carbon Dioxide 18 L 19 L (23-29) mEq/L BUN 27 H 29 H (8-23) mg/dL Creatinine 1.62 H 1.48 H (0.60-1.20) mg/dL Glucose 113 H 126 H (70-105) mg/dL Calcium 9.5 8.8 (8.6-10.3) mg/dL AST 25 23 (13-39) Units/L ALT 18 20 (7-52) Units/L Alkaline Phosphatase 63 43 (34-104) Units/L Albumin 3.3 L 3.2 L (3.5-5.7) g/dL Calcium panel 05/13/18 05/14/18 Range/Units 09:28 03:19 Calcium 9.5 8.8 (8.6-10.3) mg/dL Phosphorus 3.2 3.8 (2.7-4.5) mg/dL Albumin 3.3 L 3.2 L (3.5-5.7) g/dL Pituitary panel 05/13/18 05/14/18 Range/Units 09:28 03:19 Sodium 137 136 (136-145) mEq/L Potassium 4.4 4.3 (3.5-5.1) mEq/L Chloride 108 H 112 H (98-107) mEq/L Carbon Dioxide 18 L 19 L (23-29) mEq/L BUN 27 H 29 H (8-23) mg/dL Creatinine 1.62 H 1.48 H (0.60-1.20) mg/dL Glucose 113 H 126 H (70-105) mg/dL Calcium 9.5 8.8 (8.6-10.3) mg/dL Adrenal panel 05/13/18 05/14/18 Range/Units 09:28 03:19 Sodium 137 136 (136-145) mEq/L Potassium 4.4 4.3 (3.5-5.1) mEq/L Chloride 108 H 112 H (98-107) mEq/L Carbon Dioxide 18 L 19 L (23-29) mEq/L BUN 27 H 29 H (8-23) mg/dL Creatinine 1.62 H 1.48 H (0.60-1.20) mg/dL Glucose 113 H 126 H (70-105) mg/dL Calcium 9.5 8.8 (8.6-10.3) mg/dL Total Bilirubin 1.0 0.6 (0.3-1.0) mg/dL AST 25 23 (13-39) Units/L ALT 18 20 (7-52) Units/L Alkaline Phosphatase 63 43 (34-104) Units/L Albumin 3.3 L 3.2 L (3.5-5.7) g/dL Consult Discharge Plan - Plan Referrals: Napoleon Baez MD [Primary Care Provider] -
[2018-05-14] MEDS: Magnesium Oxide 400 MG TABLET PO SCH ×2 (10:07→20:10)
[2018-05-14] MEDS: Piperacillin/Tazobactam 3.375 GM in 0.9 % Sodium Chloride Mini Bag 100 ML IVPB SCH ×2 (11:17→20:12)
[2018-05-15] MEDS: Levalbuterol Neb 0.63 MG/3 ML IH SCH ×4 (03:07→21:55)
[2018-05-15] MEDS: Piperacillin/Tazobactam 3.375 GM in 0.9 % Sodium Chloride Mini Bag 100 ML IVPB SCH ×3 (03:54→20:21)
[2018-05-15 05:42] LABS: Alanine Aminotransferase 23 Units/L (7-52); Albumin 3.4 g/dL (3.5-5.7); Albumin/Globulin Ratio 1.3 (1.1-2.2); Alkaline Phosphatase 134 Units/L (34-104); Aspartate Amino Transferase 28 Units/L (13-39); BUN/Creatinine Ratio 23 (6-26); Bilirubin,Total 0.7 mg/dL (0.3-1.0); Blood Urea Nitrogen 19 mg/dL (8-23); Calcium 9.4 mg/dL (8.6-10.3); Carbon Dioxide 25 mEq/L (23-29); Chloride 111 mEq/L (98-107); Globulin 2.7 g/dL (2.4-3.5); Glucose 95 mg/dL (70-105); Magnesium 1.6 mg/dL (1.6-2.6); Osmolality,Calculated 290 (280-300); Phosphorous 2.4 mg/dL (2.7-4.5); Potassium 4.2 mEq/L (3.5-5.1); Sodium 139 mEq/L (136-145); Total Protein 6.1 g/dL (6.4-8.9); eGFR For Non-African Americans > 60 (> 60)
[2018-05-15 05:43] LABS: Basophils % 0.2 %; Lymphocytes % 5.3 %; Mean Corpuscular HGB Conc 32.9 g/dL (31.6-35.5); Mean Corpuscular Hemoglobin 30.5 pg (28.0-33.3)
[2018-05-15 05:44] LABS: Basophils # 0.1 K/mcL (0.0-0.2); Hematocrit 35.6 % (35.3-44.9); Hemoglobin 11.7 g/dL (11.5-15.4); Immature Granulocytes % 8.2 % (0-4); Lymphocytes # 1.5 K/mcL (0.6-4.6); Mean Platelet Volume 11.1 fL (9.4-12.4); Monocytes # 0.9 K/mcL (0.0-1.3); Neutrophils # 23.6 K/mcL (1.6-8.9); Platelet Count 175 K/mcL (140-400); Red Blood Count 3.83 M/mcL (3.82-4.97); Segmented Neutrophils % 83.3 %
[2018-05-15 06:48] LABS: Platelet Estimate Normal (Normal)
[2018-05-15] MEDS: Insulin LISPRO 300 UNITS/3 ML VIAL SQ SCH ×3 (07:59→16:22)
[2018-05-15] MEDS: Magnesium Oxide 400 MG TABLET PO SCH ×2 (08:05→20:21)
--- NOTE | 2018-05-15 10:06 | Urology Progress Note ---
Date of Encounter: 05/15/18 Time of Encounter: 09:00 - Assessment and Plan (1) Urinary tract infection Current Visit: Yes Status: Acute Assessment and plan: Patient is a 67-year-old female who presents with a urinary tract infection. Blood and urine cultures are pending. Patient is receiving IV Zosyn. Discussed concern for C. difficile with patient's nurse due to increased watery diarrhea. I also discussed my concern for fluid overload due to patient's new onset of wheezing. Patient's nurse states she will send stool for culture and communicate these concerns with the primary team. We will reevaluate patient later today. Qualifiers: Urinary tract infection type: acute cystitis Hematuria presence: without hematuria Qualified Code(s): N30.00 - Acute cystitis without hematuria (2) Urolithiasis Current Visit: Yes Status: Acute Assessment and plan: Patient is a 67-year-old female who is 2 days status post cystoscopy and left ureteral stent placement. Vital signs are stable and afebrile. White blood cell count remains elevated at 28. Renal function is reassuring and within normal range. Qualifiers: Urinary calculus location: ureter Qualified Code(s): N20.1 - Calculus of ureter Progress Note Narrative: POD #2. Patient seen and examined sitting upright in chair in no apparent distress. Patient reports increase in urinary frequency and some stent discomfort. Patient also reports multiple watery BM, at least 20 times overn ight and some wheezing with lying flat. Patient denies fever, chills, chest pain, dyspnea, flank pain. Objective Initial Vital Signs Temp Pulse Resp BP Pulse Ox 98.0 F 91 15 101/65 96 05/13/18 02:38 05/13/18 02:38 05/13/18 02:38 05/13/18 02:38 05/13/18 02:38 - General physical appearance Present: well developed, no distress, no pain - Respiratory Present: normal expansion, normal respiratory effort - Abdomen Present: soft, non tender - Integumentary Present: no rash, no abnormal pigmentation - Musculoskeletal Present: normal posture - Psychiatric Present: oriented to time, oriented to person, oriented to place, speech is normal, memory intact - Labs 05/15/18 04:37 05/15/18 04:37 Diabetes panel 05/15/18 Range/Units 04:37 Sodium 139 (136-145) mEq/L Potassium 4.2 (3.5-5.1) mEq/L Chloride 111 H (98-107) mEq/L Carbon Dioxide 25 (23-29) mEq/L BUN 19 (8-23) mg/dL Creatinine 0.83 (0.60-1.20) mg/dL Glucose 95 (70-105) mg/dL Calcium 9.4 (8.6-10.3) mg/dL AST 28 (13-39) Units/L ALT 23 (7-52) Units/L Alkaline Phosphatase 134 H (34-104) Units/L Albumin 3.4 L (3.5-5.7) g/dL Calcium panel 05/15/18 Range/Units 04:37 Calcium 9.4 (8.6-10.3) mg/dL Phosphorus 2.4 L (2.7-4.5) mg/dL Albumin 3.4 L (3.5-5.7) g/dL Pituitary panel 05/15/18 Range/Units 04:37 Sodium 139 (136-145) mEq/L Potassium 4.2 (3.5-5.1) mEq/L Chloride 111 H (98-107) mEq/L Carbon Dioxide 25 (23-29) mEq/L BUN 19 (8-23) mg/dL Creatinine 0.83 (0.60-1.20) mg/dL Glucose 95 (70-105) mg/dL Calcium 9.4 (8.6-10.3) mg/dL Adrenal panel 05/15/18 Range/Units 04:37 Sodium 139 (136-145) mEq/L Potassium 4.2 (3.5-5.1) mEq/L Chloride 111 H (98-107) mEq/L Carbon Dioxide 25 (23-29) mEq/L BUN 19 (8-23) mg/dL Creatinine 0.83 (0.60-1.20) mg/dL Glucose 95 (70-105) mg/dL Calcium 9.4 (8.6-10.3) mg/dL Total Bilirubin 0.7 (0.3-1.0) mg/dL AST 28 (13-39) Units/L ALT 23 (7-52) Units/L Alkaline Phosphatase 134 H (34-104) Units/L Albumin 3.4 L (3.5-5.7) g/dL Consult Discharge Plan - Plan Referrals: Hilborn,Napoleon D, MD [Primary Care Provider] -
--- NOTE | 2018-05-15 10:54 | Internal Med Progress Note ---
Hospitalist Progress Note - Encounter Date of Encounter: 05/15/18 Time of Encounter: 10:45 - Subjective Interval History: 67 year old female with a past medical history of hypertension, asthma, diabetes, thyroid disease transferred from [facility] due to kidney stone. Per patient into per chart review patient is having some nausea and vomiting on Sunday was noted to have a kidney stone on the left on imaging. Patient says she did not improve she went to [place] late Sunday night with nausea, vomiting, abdominal pain and flank pain. She was unable to keep any foods or liquids down. Patient was noted to have an obstructing stone on the left. - Exam Vitals: Temp Pulse Resp BP Pulse Ox 98 F 87 16 135/79 98 05/15/18 07:00 05/15/18 07:00 05/15/18 07:00 05/15/18 07:00 05/15/18 07:00 Exam: General appearance: no acute distress, alert Eyes: nonicteric ENT: oropharynx moist Neck: supple REsp: bilateral: clear, diminished breath sounds (due to pain with inspiration in pelvis) Cardiovascular: regular rate and rhythm Gastrointestinal: normoactive bowel sounds Extremities: no cyanosis, no edema, pink and warm ACID CUTTER: normal mental status - Assessment and Plan (1) Sepsis Current Visit: Yes Status: Acute Assessment and Plan: Sepsis likely secondary to complicated UTI. Continue zosyn. Follow cultures (2) Urolithiasis Current Visit: Yes Status: Acute Assessment and Plan: s/p cystoscopy and stent placement. Stable. Urology following (3) Acute kidney injury Current Visit: Yes Status: Acute Assessment and Plan: Resolved with IV fluids (4) Pneumonia Current Visit: Yes Status: Acute Assessment and Plan: Continue zosyn (5) Urinary tract infection Current Visit: Yes Status: Acute Assessment and Plan: On antibiotics (6) DVT prophylaxis Current Visit: Yes Status: Acute Assessment and Plan: Heparin sc - Time Spent with Patient Total time spent is greater than 50% in coordination of care (as documented) at patient's floor/unit and/or counseling patient: Internal Medicine: Result - Labs CBC & Chem 7: 05/15/18 04:37 05/15/18 04:37 Labs: Short CBC 05/15/18 Range/Units 04:37 WBC 28.3 H (4.3-11.1) K/mcL Hgb 11.7 (11.5-15.4) g/dL Hct 35.6 (35.3-44.9) % Plt Count 175 (140-400) K/mcL Neutrophils # 23.6 H (1.6-8.9) K/mcL BMP 05/15/18 04:37 Sodium 139 Potassium 4.2 Chloride 111 H Carbon Dioxide 25 BUN 19 Creatinine 0.83 Glucose 95 Calcium 9.4 Liver Function 05/15/18 Range/Units 04:37 Total Bilirubin 0.7 (0.3-1.0) mg/dL AST 28 (13-39) Units/L ALT 23 (7-52) Units/L Alkaline Phosphatase 134 H (34-104) Units/L Albumin 3.4 L (3.5-5.7) g/dL Consult Discharge Plan - Plan Referrals: Napoleon Baez MD [Primary Care Provider] - (1) Sepsis Qualifiers: Sepsis type: sepsis due to unspecified organism Qualified Code(s): A41.9 - Sepsis, unspecified organism (2) Urolithiasis Qualifiers: Urinary calculus location: ureter Qualified Code(s): N20.1 - Calculus of ureter (4) Pneumonia Qualifiers: Pneumonia type: due to unspecified organism Laterality: right Lung location: lower lobe of lung Qualified Code(s): J18.1 - Lobar pneumonia, unspecified organism (5) Urinary tract infection Qualifiers: Urinary tract infection type: acute cystitis Hematuria presence: without hematuria Qualified Code(s): N30.00 - Acute cystitis without hematuria
[2018-05-15] MEDS: *HR* Heparin 5,000 UNIT/ML VIAL SQ SCH (18:44)
[2018-05-15 19:24] LABS: Adenovirus F 40/41 PCR Not detected (Not detect); Astrovirus PCR Not detected (Not detect); C.difficile Toxin A/B Gene PCR Not detected (Not detect); Campylobacter by PCR Not detected (Not detect); Cryptosporidium by PCR Not detected (Not detect); Cyclospora cayetanensis PCR Not detected (Not detect); E. coli O157 by PCR Not detected (Not detect); Entamoeba histolytica PCR Not detected (Not detect); Enteroaggregative E.coli(EAEC) Not detected (Not detect); Enteropathogenic E.coli(EPEC) Not detected (Not detect); Enterotoxigenic E.coli (ETEC) Not detected (Not detect); Giardia lamblia PCR Not detected (Not detect); Norovirus GI/GII PCR Not detected (Not detect); Plesiomonas shigelloides PCR Not detected (Not detect); Rotavirus A PCR Not detected (Not detect); Salmonella PCR Not detected (Not detect); Sapovirus PCR Not detected (Not detect); Shig/EnteroinvasiveE coli EIEC Not detected (Not detect); Shigalike tox-prod E coli STEC Not detected (Not detect); Vibrio PCR Not detected (Not detect); Vibrio cholerae PCR Not detected (Not detect); Yersinia enterocolitica PCR Not detected (Not detect)
[2018-05-16] MEDS: Levalbuterol Neb 0.63 MG/3 ML IH SCH (03:31)
[2018-05-16] MEDS: Piperacillin/Tazobactam 3.375 GM in 0.9 % Sodium Chloride Mini Bag 100 ML IVPB SCH ×2 (04:15→11:54)
[2018-05-16 05:47] LABS: Basophils # 0.1 K/mcL (0.0-0.2); Basophils % 0.3 %; Eosinophils # 0.1 K/mcL (0.0-0.6); Eosinophils % 0.8 %; Hematocrit 32.7 % (35.3-44.9); Hemoglobin 10.8 g/dL (11.5-15.4); Immature Granulocytes % 0.8 % (0-4); Lymphocytes # 2.4 K/mcL (0.6-4.6); Lymphocytes % 14.2 %; Mean Corpuscular Hemoglobin 30.1 pg (28.0-33.3); Mean Corpuscular Volume 91.1 fL (83.0-100.0); Mean Platelet Volume 10.7 fL (9.4-12.4); Monocytes # 0.6 K/mcL (0.0-1.3); Monocytes % 3.3 %; Neutrophils # 13.6 K/mcL (1.6-8.9); Platelet Count 179 K/mcL (140-400); Red Blood Count 3.59 M/mcL (3.82-4.97); Red Cell Distribution Width 12.3 % (11.5-14.5); Segmented Neutrophils % 80.6 %
[2018-05-16] MEDS ORDERED: Levalbuterol Neb 0.63 MG/3 ML IH PRN (05:56)
[2018-05-16 06:07] LABS: Alanine Aminotransferase 21 Units/L (7-52); Albumin 3.1 g/dL (3.5-5.7); Albumin/Globulin Ratio 1.2 (1.1-2.2); Alkaline Phosphatase 150 Units/L (34-104); Aspartate Amino Transferase 22 Units/L (13-39); BUN/Creatinine Ratio 22 (6-26); Bilirubin,Total 0.7 mg/dL (0.3-1.0); Blood Urea Nitrogen 15 mg/dL (8-23); Calcium 9.3 mg/dL (8.6-10.3); Carbon Dioxide 26 mEq/L (23-29); Chloride 105 mEq/L (98-107); Globulin 2.6 g/dL (2.4-3.5); Glucose 87 mg/dL (70-105); Magnesium 1.6 mg/dL (1.6-2.6); Osmolality,Calculated 288 (280-300); Phosphorous 2.2 mg/dL (2.7-4.5); Potassium 3.6 mEq/L (3.5-5.1); Sodium 139 mEq/L (136-145); Total Protein 5.7 g/dL (6.4-8.9); eGFR For Non-African Americans > 60 (> 60)
[2018-05-16] MEDS: *HR* Heparin 5,000 UNIT/ML VIAL SQ SCH (06:28)
[2018-05-16 06:53] VITALS: BP 151/86
[2018-05-16] MEDS: Insulin LISPRO 300 UNITS/3 ML VIAL SQ SCH ×2 (08:26→11:54)
--- NOTE | 2018-05-16 08:27 | Urology Progress Note ---
Date of Encounter: 05/16/18 Time of Encounter: 07:50 - Assessment and Plan (1) Urinary tract infection Current Visit: Yes Status: Acute Assessment and plan: Patient is a 67-year-old female who presents with a left proximal ureteral stone and urinary tract infection. Vital signs are currently stable and afebrile. White blood cell count is trending down to 16.9. Culture from kidney aspirate is negative. Patient is receiving IV Zosyn. I called [facility] microbiology department and obtained initial urine culture and sensitivity results from 05/12/2017. Urine culture was positive for Klebsiella. I recomm end an additional 10 days of oral antibiotics, such as a fluoroquinolone, Bactrim or Omnicef. Qualifiers: Urinary tract infection type: acute cystitis Hematuria presence: without hematuria Qualified Code(s): N30.00 - Acute cystitis without hematuria (2) Urolithiasis Current Visit: Yes Status: Acute Assessment and plan: Patient is a 67-year-old female who presents 3 days status post cystoscopy and left ureteral stent placement. She is aware she will require a staged stone extraction procedure. Discussed postoperative expectations with indwelling ureteral stent. Patient will follow up in urology clinic with Dr. Akhtar within 2 weeks of discharge. Qualifiers: Urinary calculus location: ureter Qualified Code(s): N20.1 - Calculus of ureter Progress Note Subjective: feels better Narrative: POD #3. Patient seen and examined sitting upright in chair in no apparent distress. Patient is tolerating normal diet without nausea or vomiting. Patient is voiding without difficulty. Patient denies any significant pain, chest pain, dyspnea, fever, chills or flank pain. Patient states diarrhea subsided. Objective Initial Vital Signs Temp Pulse Resp BP Pulse Ox 98.0 F 91 15 101/65 96 05/13/18 02:38 05/13/18 02:38 05/13/18 02:38 05/13/18 02:38 05/13/18 02:38 - General physical appearance Present: well developed, no distress, no pain - Respiratory Present: normal expansion, normal respiratory effort - Abdomen Present: soft, non tender - Integumentary Present: no rash, no abnormal pigmentation - Musculoskeletal Present: normal posture - Psychiatric Present: oriented to time, oriented to person, oriented to place, speech is normal, memory intact - Labs 05/16/18 05:25 05/16/18 05:25 Diabetes panel 05/16/18 Range/Units 05:25 Sodium 139 (136-145) mEq/L Potassium 3.6 (3.5-5.1) mEq/L Chloride 105 (98-107) mEq/L Carbon Dioxide 26 (23-29) mEq/L BUN 15 (8-23) mg/dL Creatinine 0.68 (0.60-1.20) mg/dL Glucose 87 (70-105) mg/dL Calcium 9.3 (8.6-10.3) mg/dL AST 22 (13-39) Units/L ALT 21 (7-52) Units/L Alkaline Phosphatase 150 H (34-104) Units/L Albumin 3.1 L (3.5-5.7) g/dL Calcium panel 05/16/18 Range/Units 05:25 Calcium 9.3 (8.6-10.3) mg/dL Phosphorus 2.2 L (2.7-4.5) mg/dL Albumin 3.1 L (3.5-5.7) g/dL Pituitary panel 05/16/18 Range/Units 05:25 Sodium 139 (136-145) mEq/L Potassium 3.6 (3.5-5.1) mEq/L Chloride 105 (98-107) mEq/L Carbon Dioxide 26 (23-29) mEq/L BUN 15 (8-23) mg/dL Creatinine 0.68 (0.60-1.20) mg/dL Glucose 87 (70-105) mg/dL Calcium 9.3 (8.6-10.3) mg/dL Adrenal panel 05/16/18 Range/Units 05:25 Sodium 139 (136-145) mEq/L Potassium 3.6 (3.5-5.1) mEq/L Chloride 105 (98-107) mEq/L Carbon Dioxide 26 (23-29) mEq/L BUN 15 (8-23) mg/dL Creatinine 0.68 (0.60-1.20) mg/dL Glucose 87 (70-105) mg/dL Calcium 9.3 (8.6-10.3) mg/dL Total Bilirubin 0.7 (0.3-1.0) mg/dL AST 22 (13-39) Units/L ALT 21 (7-52) Units/L Alkaline Phosphatase 150 H (34-104) Units/L Albumin 3.1 L (3.5-5.7) g/dL Consult Discharge Plan - Plan Referrals: Napoleon Baez MD [Primary Care Provider] -
[2018-05-16] MEDS: Magnesium Oxide 400 MG TABLET PO SCH (08:30)
--- NOTE | 2018-05-16 19:25 | Discharge Summary ---
Orders not resulted at time of discharge: Pending orders 05/13/18 09:28 Culture,Blood [BC] Stat Date of Encounter: 05/16/18 Time of Encounter: 19:00 - Discharge Diagnosis (1) Sepsis Priority: Primary Status: Acute Assessment and Plan: 67 year old female with a past medical history of hypertension, asthma, diabetes, thyroid disease transferred from the [facility] due to kidney stone. Per patient into per chart review patient is having some nausea and vomiting on Sunday was noted to have a kidney stone on the left on imaging. Patient says she did not improve she went to [place] late Sunday night with nausea, vomiting, abdominal pain and flank pain. She was unable to keep any foods or liquids down. Patient was noted to have an obstructing stone on the left. Patient transferred to [facility], urology was notified. She was assessed with sepsis likely secondary to complicated UTI and ureterolithiasis. She was started on broad spectrum antibiotics and seen by urology. She underwent a cystoscopy and left ureteral stent placement. She is aware she will require a staged stone extraction procedure. She will follow up with urology outpatient and complete a 10 day course of antibiotics. 35 minutes was spent discharging this patient Qualifiers: Sepsis type: sepsis due to unspecified organism Qualified Code(s): A41.9 - Sepsis, unspecified organism (2) Urolithiasis Priority: Primary Status: Acute Qualifiers: Urinary calculus location: ureter Qualified Code(s): N20.1 - Calculus of ureter (3) Acute kidney injury Priority: Primary Status: Acute (4) Pneumonia Priority: Primary Status: Acute Qualifiers: Pneumonia type: due to unspecified organism Laterality: right Lung location: lower lobe of lung Qualified Code(s): J18.1 - Lobar pneumonia, unspecified organism (5) Urinary tract infection Priority: Primary Status: Acute Qualifiers: Urinary tract infection type: acute cystitis Hematuria presence: without hematuria Qualified Code(s): N30.00 - Acute cystitis without hematuria (6) DVT prophylaxis Priority: Primary Status: Acute Hospital course: Ms. Blood is a 67 year old female - Time Spent with Patient Total time spent providing and/or coordinating discharge services: - Discharge Medications Prescriptions: New Cefdinir [Omnicef] 300 mg PO BID 10 Days #20 capsule Continue Celecoxib [Celebrex] 200 mg PO DAILY metFORMIN [Glucophage] 500 mg PO BIDWM Lisinopril [Zestril] 10 mg PO DAILY Rosuvastatin Calcium [Crestor] 10 mg PO HS Levothyroxine [Synthroid] 88 mcg PO DAILY Home Medications: Celecoxib [Celebrex] 200 mg PO DAILY 05/13/18 [History] Levothyroxine [Synthroid] 88 mcg PO DAILY 05/13/18 [History] Lisinopril [Zestril] 10 mg PO DAILY 05/13/18 [History] Rosuvastatin Calcium [Crestor] 10 mg PO HS 05/13/18 [History] metFORMIN [Glucophage] 500 mg PO BIDWM 05/13/18 [History] Cefdinir [Omnicef] 300 mg PO BID 10 Days #20 capsule 05/16/18 [Rx] Allergies/Adverse Reactions: Allergy/AdvReac Type Severity Reaction Status Date / Time tea Allergy Wheezing Uncoded 05/13/18 02:56 Date of admission: 05/13/18 07:50 Primary care physician: Napoleon Baez MD - Constitutional Vitals: Temp Pulse Resp BP Pulse Ox 98.3 F 84 16 151/86 95 05/16/18 06:29 05/16/18 06:29 05/16/18 06:29 05/16/18 06:29 05/16/18 06:29 General appearance: Present: A&O X 1, severe distress. Absent: answers questions appropriately Exam: General appearance: no acute distress, alert Eyes: nonicteric ENT: oropharynx moist Neck: supple REsp: bilateral: clear, diminished breath sounds (due to pain with inspiration in pelvis) Cardiovascular: regular rate and rhythm Gastrointestinal: normoactive bowel sounds Extremities: no cyanosis, no edema, pink and warm HAND STRIPER: normal mental status - Patient Status Disposition: Home, Self-Care - Discharge Instructions Follow Up With: Napoleon Baez MD [Primary Care Provider] - Rony [facility] MD [Partnered Physician] - (OFFICE WILL CONTACT YOU FOR FOLLOW UP) Additional Instructions: DRINK PLENTY OF WATER TO STAY HYDRATED. PLEASE ATTEND ALL FOLLOW UP APPOINTMENTS SCHEDULED. IF SYMPTOMS RETURN OR WORSEN, PLEASE CALL , YOUR FAMILY DOCTOR, GO TO THE NEAREST EMERGENCY ROOM OR CALL 911. PLEASE CALL 'S OFFICE WITH ANY QUESTIONS OR CONCERNS. PLEASE TAKE ALL ANTIBIOTICS PRESCRIBED, EVEN IF SYMPTOMS GO AWAY, UNTIL THEY ARE GONE.
--- NOTE | 2018-05-17 13:35 | Electrocardiograph Report ---
[address] [id number] Test Date: 2018-05-13 Pat Name: Tarik Blood Department: 101 Room: [facility] Gender: F Spud Grader: TAM : 1950 Requested By: Jack Palumbo Order Number: [id number] Reading MD: Teresa Gomez Measurements Intervals Craig Rate: 93 P: 76 NE: 154 QRS: 53 QRSD: 77 T: 48 QT: 331 QTc: 382 Interpretive Statements SINUS RHYTHM LOW QRS VOLTAGE IN PRECORDIAL LEADS Electronically Signed On 05-17-2018 13:34:06 EST by Teresa Gomez
== END 2018-05-16 13:20 | disposition home or self-care (01) | DRG 853 ==
LOC: 3ANU → SUATTDRO 05-13 02:17 → ICNU 05-13 07:49 → 3NENU 05-14 15:43
PROVIDERS: ADMIT Family Medicine; ATTEND Internal Medicine

== ENCOUNTER 2019-03-13 15:13 | Inpatient (IN) ==
[2019-03-13] MEDS ORDERED: Acetaminophen 325 MG TABLET PO PRN (17:47)
[2019-03-13] MEDS ORDERED: Naloxone 0.4 MG/ML INJ IVP PRN (17:47)
[2019-03-13] MEDS ORDERED: Dextrose Gel 15 GM/37.5 ML TUBE PO PRN ×2 (18:14)
[2019-03-13] MEDS ORDERED: *HR* Dextrose 50 % in Water (Syg) 50 ML SYRINGE IVP PRN (18:14)
[2019-03-13] MEDS ORDERED: D5% in Water 1,000 ML IVC PRN (18:14)
[2019-03-13] MEDS ORDERED: Ibuprofen 800 MG TABLET PO PRN (18:15)
[2019-03-13] MEDS ORDERED: Insulin LISPRO 300 UNITS/3 ML VIAL SQ SCH (21:00)
[2019-03-13] MEDS: *HR* Heparin 5,000 UNIT/ML VIAL SQ SCH (21:12)
[2019-03-13 21:59] LABS: Estimated Average Glucose 114 mg/dl
[2019-03-14 06:18] LABS: Basophils % 0.6 %; Eosinophils # 0.2 K/mcL (0.0-0.6); Eosinophils % 2.5 %; Hematocrit 36.2 % (35.3-44.9); Hemoglobin 12.2 g/dL (11.5-15.4); Immature Granulocytes % 0.1 % (0-4); Lymphocytes # 2.3 K/mcL (0.6-4.6); Lymphocytes % 32.3 %; Mean Corpuscular HGB Conc 33.7 g/dL (31.6-35.5); Mean Corpuscular Hemoglobin 30.7 pg (28.0-33.3); Mean Corpuscular Volume 91.2 fL (83.0-100.0); Mean Platelet Volume 10.1 fL (9.4-12.4); Monocytes # 0.6 K/mcL (0.0-1.3); Monocytes % 7.6 %; Neutrophils # 4.1 K/mcL (1.6-8.9); Platelet Count 265 K/mcL (140-400); Red Blood Count 3.97 M/mcL (3.82-4.97); Red Cell Distribution Width 12.4 % (11.5-14.5); Segmented Neutrophils % 56.9 %; White Blood Count 7.3 K/mcL (4.3-11.1)
[2019-03-14] MEDS: *HR* Heparin 5,000 UNIT/ML VIAL SQ SCH ×2 (06:23→17:09)
[2019-03-14 06:30] LABS: BUN/Creatinine Ratio 20 (6-26); Blood Urea Nitrogen 13 mg/dL (8-23); Calcium 9.3 mg/dL (8.6-10.3); Carbon Dioxide 26 mEq/L (23-29); Chloride 104 mEq/L (98-107); Glucose 97 mg/dL (70-105); Osmolality,Calculated 294 (280-300); Potassium 3.7 mEq/L (3.5-5.1); Sodium 142 mEq/L (136-145); eGFR For African Americans > 60 (> 60); eGFR For Non-African Americans > 60 (> 60)
[2019-03-14] MEDS ORDERED: Valsartan 80 MG TABLET PO SCH (12:52)
[2019-03-14] MEDS ORDERED: Fluticasone Propionate Nasal 50 MCG/SPRAY BOTTLE NS PRN ×2 (12:52→20:40)
[2019-03-14] MEDS: Insulin LISPRO 300 UNITS/3 ML VIAL SQ SCH ×2 (13:02→17:07)
[2019-03-14] MEDS ORDERED: *HR* FentaNYL (PF) 100 MCG/2 ML VIAL ONE (17:30)
[2019-03-14] MEDS ORDERED: *HR* Midazolam HCl 2 MG/2 ML VIAL ONE (17:30)
[2019-03-14] MEDS ORDERED: ROPIVACAINE/PF/NS 0.25% 1 EACH SYRINGE INTRAART ONE (17:31)
[2019-03-14] MEDS ORDERED: Ropivacaine/PF 0.5% 30 ML VIAL ONE (17:31)
[2019-03-14] MEDS ORDERED: *HR* Propofol 200 MG/20 ML VIAL IVP ONE (17:58)
[2019-03-14] MEDS ORDERED: Dexamethasone 4 MG/ML VIAL ONE (18:04)
[2019-03-14] MEDS ORDERED: Ondansetron 4 MG/2 ML VIAL ONE (18:04)
[2019-03-14] MEDS ORDERED: EPHEDrine 50 MG/ML VIAL ONE (18:20)
[2019-03-14] MEDS ORDERED: *HR* PHENYLEPHRINE 1,000 MCG/10 ML SYRINGE IVP ONE (18:38)
[2019-03-14] MEDS ORDERED: *HR* OxyCODONE Immed Rel 5 MG TABLET PO PRN (19:49)
[2019-03-14] MEDS ORDERED: *HR* Promethazine 25 MG/ML VIAL IVP PRN (19:49)
[2019-03-14] MEDS ORDERED: Ondansetron 4 MG/2 ML VIAL IVP ONE (19:49)
[2019-03-14] MEDS ORDERED: Ibuprofen 800 MG TABLET PO PRN (20:40)
[2019-03-14] MEDS ORDERED: Acetaminophen 325 MG TABLET PO PRN (20:40)
[2019-03-14] MEDS ORDERED: Dextrose Gel 15 GM/37.5 ML TUBE PO PRN ×2 (20:40)
[2019-03-14] MEDS ORDERED: *HR* Dextrose 50 % in Water (Syg) 50 ML SYRINGE IVP PRN (20:40)
[2019-03-14] MEDS ORDERED: Naloxone 0.4 MG/ML INJ IVP PRN (20:40)
[2019-03-14] MEDS ORDERED: D5% in Water 1,000 ML IVC PRN (20:40)
[2019-03-14] MEDS ORDERED: Insulin LISPRO 300 UNITS/3 ML VIAL SQ SCH (21:00)
[2019-03-15] MEDS ORDERED: *HR* Heparin 5,000 UNIT/ML VIAL SQ SCH (06:00)
[2019-03-15] MEDS: Insulin LISPRO 300 UNITS/3 ML VIAL SQ SCH ×2 (08:44→14:42)
[2019-03-15] MEDS ORDERED: Valsartan 80 MG TABLET PO SCH (09:00)
[2019-03-15 11:00] VITALS: BP 108/72
== END 2019-03-15 17:05 | disposition home or self-care (01) | DRG 494 ==
LOC: 3NENU → SUATTDRO 17:47
PROVIDERS: ADMIT Internal Medicine; ATTEND Internal Medicine